=== PATIENT | female | born 1975 ===

== ENCOUNTER 2024-09-08 15:21 | Emergency (ER) | payer SELFPAY ==
[2024-09-08 15:24] VITALS: BP 153/85; PULSE 84; RESP 20; TEMP 37.2; O2SAT 100
--- OUTSIDE RECORDS SUMMARY | 2024-09-08 16:15 | XMS_ITS | Encounter Summary ---
Author Organization [facility] Address [address] [place] [address] Care Team Providers Care Spinner Fixer Name Role Phone Mishel Mendoza [facility] Primary Care Provider [phone] Encounter Details Date Type Department Care Team (Late st Contact Info) Description 11/06/2022 MyChart Message Enc [facility] [address] [place], [place] [address] [facility] Provider Air Quality Message Social History Tobacco Use Types Packs/Day Years Used Date Smoking Tobacco: Every Day Cigarettes 0.3 20 Started: 06/23/1999; Last attempted to quit: 06/23/2019 Smokeless Tobacco: Never Comments:01-17-2022 smokes abo ut 7 cigarettes a day Alcohol Use Standard Drinks/Week Comments Yes 0 (1 standard drink = 0.6 oz pur e alcohol) ocassionally AUDIT-C Answer Date Recorded Frequency of Alcohol Consumption Monthly or less 05/13/2018 Average Number of Drinks Not on file 019 Frequency of Binge Drinking Not on file 06/2018 PHQ-2 Answer Date Recorded Patient Health Questionnaire-2 Score 2 08/22/2022 Comments No Sex and Gender Information Value Date Recorded Sex Assigned at Female 05/13/2018 9:36 AM POOL HAND Legal Sex Female 10:09 PM CDT Gender Identity Female 05/13/2018 9:36 AM POOL HAND Sexual Orientation Straight 06/17/2021 9: 24 PM POOL HAND Occupation Industry Job Start Date Job End Date leave of abscence back pain Not on file Not on file Not on file documented as of this encounter Plan of Treatment Upcoming Encounters Date Type Department Care Team (Late st Contact Info) Description 02/21/2025 2:30 PM CDT Office Visit [facility] [place] [id number] Daniela Coreas, ANP-BC [address] [facility] [address] [place] [address] documented as of this encounter Visit Diagnoses Not on filedocumented in this encounter Additional Health Concerns Infection Onset Date Last Indicated Resolved Time COVID-19 Rule Out 02/11/2023 02/11/2023 02/11/2023 1:13 PM CDT Assessment Noted Time PHQ-9 Depression Total Score: 2 08/16/19 23 12:00 PM CDT documented as of this encounter Care Teams Spinner Fixer Relationship Specialty Start Date End Date Mishel Mendoza FNP [address] [place] [address] PCP - General NURSE PRACTITIONER 05/07/18 documented as of this encounter
--- OUTSIDE RECORDS SUMMARY | 2024-09-08 16:15 | XMS_ITS | Clinical Summary ---
Author Organization [facility] Address [facility] [place] [address] Care Team Providers Care Bag Loader Name Role Phone Mishel Mendoza NP Primary Care Provider [phone] Allergies Active Allergy Reactions Criticality Noted Date Comments Aspirin Hives Medium Erythromycin Hives Medium Levofloxacin Hives Medium Lisinopril Cough Low 08/02/2019 Losartan Rash Medium 08/02/2019 Small-blister rash throughout body. Penicillins Hives Medium Topiramate Vision changes Medium 09/10/2012 Venlafaxine Other (See comments) Low 10/30/2012 Medications omeprazole (PriLOSEC) 40 mg capsule TAKE 1 CAPSULE BY MOUTH EVERY DAY 0 Active diclofenac sodium (VOLTAREN) 1 % gel APPLY 4 GRAMS TO AFFECTED AREA UP TO 4 TIMES DAILY NEEDED 0 Active buPROPion SR (WELLBUTRIN SR) 150 mg 12 hr tablet Take 150 mg by mouth 2 (two) times a day 9 Active valACYclovir (VALTREX) 1 gram tablet 2 tablets po q12 hours x1 day PRN at onset of fever blister 0 Active pregabalin (LYRICA) 200 mg capsule Take 200 mg by mouth 2 (two) times a day 0 Active potassium chloride ER (KLOR-CON) 20 mEq CR tablet TAKE 1 TABLET BY MOUTH TWICE A DAY 0 Active naloxone (NARCAN) 4 mg/actuation spray,non-aero marry USE 1 SPRAY DELIVERED BY [employer] NEEDED SUSPECTED OPIATE OVERDOSE 9 Active hydrOXYzine (ATARAX) 25 mg tablet TAKE 1 TABLET BY MOUTH THREE TIMES A DAY NEEDED FOR ANXIETY 0 Active indapamide (LOZOL) 1.25 mg tablet Take 1.25 mg by mouth daily [address] (CYMBALTA) 60 mg capsule Take 60 mg by mouth daily 0 Active dicyclomine (BENTYL) 10 mg capsule Take 10 mg by mouth 3 (three) times a day 0 Active colestipoL (COLESTID) 1 gram tablet TAKE 2 TABLETS BY MOUTH 3 TIMES A DAY 0 Active azelastine (ASTELIN) 137 mcg (0.1 %) nasal spray Administer 2 sprays into affected nostril(s) 2 (two) times a day 0 Active albuterol HFA (PROVENTIL HFA,VENTOLIN HFA,PROAIR HFA) 90 mcg/actuation inhaler Inhale 2 puffs every 4 (four) hours as needed 9 Active Active Problems Problem Noted Date Diagnosed Date Osteoarthritis of knee 05/16/2016 Surgical History Surgery Date Site/Laterality Comments CHOLECYSTECTOMY HYSTERECTOMY TUBAL LIGATION 05/12/2001 - 05/11/2002 RECONSTRUCTION 05/12/2010 - 05/11/2011 RIGHT ankle reconstruction SPINAL CORD STIMULATOR IMPLANT 05/12/2011 - 05/11/2012 EYE SURGERY cataracts CATARACT EXTRACTION, BILATERAL CARPAL TUNNEL RELEASE Medical History Medical History Date Comments GERD (gastroesophageal reflux disease) Anxiety Asthma Depression IBS (irritable bowel syndrome) Arthritis Cataract removed Hiatal hernia Osteoarthritis Family History Medical History Relation Name Comments Hypertension Father Family history of hypertension - (Added by TW Conv) Lung cancer Maternal Grandfather Colon cancer Mother's Brother Liver cancer Mother's Brother Relation Name Status Comments Father Maternal Grandfather Mother's Brother Social History Tobacco Use Types Packs/Day Years Used Date Smoking Tobacco: Former Cigarettes 1 20 0 12/15/1997 - 12/15/2017 Smokeless Tobacco: Never Alcohol Use Standard Drinks/Week Comments Yes 0 (1 standard drink = 0.6 oz pur e alcohol) AUDIT-C Answer Date Recorded Frequency of Alcohol Consumption Never 06/07/2020 Average Number of Drinks Not on file 021 Frequency of Binge Drinking Not on file 05/13 Comments No Sex and Gender Information Value Date Recorded Sex Assigned at Not on file Legal Sex Female 2:58 AM ASSOCIATE DIRECTOR REGULATORY AFFAIRS Gender Identity Not on file Sexual Orientation Not on file Occupation Industry Job Start Date Job End Date disabled Not on file Not on file Not on file Obstetrics History Last Filed Vital Signs Vital Sign Reading Time Taken Comments Blood Pressure 128/89 08/28/2018 11:10 AM CDT Pulse 70 08/28/2018 11:10 AM CDT Temperature 36.6 C (97.9 F) 08/28/2018 11:10 AM CDT Respiratory Rate 16 08/28/2018 11:10 AM CDT Oxygen Saturation 97% 08/28/2018 11:10 AM CDT Inhaled Oxygen Concentration - - Weight 117.9 kg (260 lb) 06/07/2020 11:07 AM ASSOCIATE DIRECTOR REGULATORY AFFAIRS Height 160 cm (5' 3 ) 06/07/2020 11:07 AM ASSOCIATE DIRECTOR REGULATORY AFFAIRS Body Mass Index 46.06 06/07/2020 11:07 AM ASSOCIATE DIRECTOR REGULATORY AFFAIRS Plan of Treatment Not on file Medical Devices Implanted Type Area Client Service Representative Device Identifier Shelf Expiration Date Model / Serial / Lot Nevro Rodrigo [id number] Nevro 70cm Lead 5mm Spacing Kit Neurostimulator Sterile Latex Free - Sna - [id number] Implanted:Qty: 1 on 08/28/2018 by Germán Perez DO at [facility] N/A: Back Nevro Rodrigo [id number] 03/17/2021 [id number] / NA / [id number] Nevro Rodrigo [id number] Nevro 70cm Lead 5mm Spacing Kit Neurostimulator Sterile Latex Free - Sna - [id number] Implanted:Qty: 1 on 08/28/2018 by Germán Perez DO at [facility] N/A: Back Nevro Rodrigo [id number] 12/19/2020 [id number] 70B / NA / [id number] Nevro Rodrigo [id number] Senza Ipg Kit Neurostimulator Sterile Disposable Latex Free - [id number] - [id number] Implanted:Qty: 1 on 08/28/2018 by Germán Perez DO at [facility] N/A: Back Nevro Rodrigo [id number] 03/31/2020 [id number] / [id number] / [id number] Insurance [facility] HMO/PPO Address: [address] [address] [place] [address] IDPA IDPA MEDICARE Care Teams Bag Loader Relationship Specialty Start Date End Date Mishel Mendoza NP [address] [place] [address] [place] [address] PCP - General Family Practice 06/07/20
--- OUTSIDE RECORDS SUMMARY | 2024-09-08 16:15 | XMS_ITS | Patient Health Record ---
Author Organization [facility] Address [address] [facility] [address] [place] [address] Care Team Providers Care Risk Control Consultant Name Role Phone Kelly BROWN, Mishel Primary Care Provider Edmundo COTE NP, BERENICE Unavailable ALLERGIES Allergen (clinical drug ingredient) Drug/Non Drug Allergy documented on EMR Reaction Allergy Type Onset Date Status Substance with penicillin structure and antibacterial mechanism of action (substance) PENICILLINS (uncoded) Review Dt:08/20/2017 Allergy Active aspirin ASPIRIN Review Dt:08/20/2017 Drug Allergy Active erythromycin ERYTHROMYCIN BASE Review Dt:08/20/2017 Drug Allergy Active LEVAQUIN Review Dt:08/20/2017 Drug Allergy Active REASON FOR REFERRAL No Information MEDICATIONS Medication SIG (Take, Route, Frequency, Duration) Notes Start Date End Date Status Hyoscyamine Sulfate 0.125 MG 06/11/2017 Not-Taking Pregabalin 200 MG 1 capsule 1 to 3 hours before bedtime Orally Once a day Active Hyoscyamine Sulfate ER 0.375 MG 06/11/2017 Not-Taking Atorvastatin Calcium 10 MG 1 tablet Orally Once a day Active Creon 25177 UNIT as directed Orally 2 w/ meals a nd 1 w/ snacks Not-Taking buPROPion HCl 100 MG 1 tablet Orally Twice a day 150mg Active Gabapentin 400 MG 1 capsule Orally Twice a day for 30 day(s) Not-Taking metFORMIN HCl 500 MG 1 tablet with a meal Orally Once a day Active Nortriptyline HCl 75 MG 1 capsule Orally Once a day for 30 day(s) Not-Taking Phentermine HCl 15 MG 1 capsule Orally Once a day Not-Taking Percocet 7.5-325 MG 1 tablet as needed Orally every 6 hrs Not-Taking Xyzal Allergy 24HR 5 MG 1 tablet in the evening Orally Once a day Active Wellbutrin XL started when she quit smoking Not-Taking Irbesartan 150 MG 1 tablet Orally Once a day Active Colestipol HCl 1 GM 2 tablets Orally twice daily for 30 Not-Taking DULoxetine HCl 60 MG TAKE 1 CAPSULE BY MOUTH EVERY DAY for 30 Future refills will require an office visit. Has not been seen since 06/14/20 Not-Taking OMEPRAZOLE 40 MG CAPSULE,DELAYED RELEASE 40 MG 1 capsule 30 minutes before morning meal Orally Once a day for 90 days 06/11/2017 Active Dicyclomine HCl 10 MG 1-2 capsules Orally Three times a day for 30 day(s) may fill day 03/09/2021 Active Omeprazole 40 MG 1 capsule 30 minutes before morning meal Orally Once a day for 30 days Will need office visit for future refills Active PROBLEMS Problem Type ICD Code Onset Dates Problem Status W/U Status Risk SNOMED Code Notes Problem Irritable bowel syndrome with diarrhea (K58.0) Active confirmed Irritable bowel syndrome with diarrhea (921832806) PLAN OF TREATMENT No Information Insurance Providers Payer Name Payer Address Payer Phone Subscriber Number Group Number Insured Name Patient Relationship to Insured Coverage Start Date Coverage End Date [employer] Medicare [address] [address] [place], [place] [id number] Carly Bruce Self - patient is the insured Medicaid-[place] Medicaid [address] [address] [place], [place] [id number] Carly Bruce Self - patient is the insured MEDICAL (GENERAL) HISTORY Medical History History ICD Code Anxiety Depression Arthritis GERD Hypertension IBS Chronic pain Gallbladder disease Surgical History Surgery Date(Month/Year) Cholecystectomy:2009 Egd/endoscopy:EGD and colono scopy Dr. Casillas November 2010 which showed bile gastritis, reflux esophagitis, and a normal colon. Biopsies at that time showed a normal duodenum, mild chronic and active gastritis, no evidence of H. pylori, chronic active esophagit Spinal cord stimulator 2011 Ankle reconstruction 2010 Wrist surgery 2010 Hysterectomy 2003 Tubal ligation EGD 09/19/17 [place] Sma ll hiatal hernia, o/w normal Duodenal bx neg Colonocopy 09/19/17 [place] Normal colon up to TI. TI and colon bx neg.
--- OUTSIDE RECORDS SUMMARY | 2024-09-08 16:15 | XMS_ITS | Referral Summary ---
Author Organization [facility] Address [facility] [place] [address] Care Team Providers Care Traveling Representative Name Role Phone Mishel Mendoza NP Primary Care Provider [phone] Allergies Active Allergy Reactions Criticality Noted Date [...] Date Diagnosed Date Osteoarthritis of knee 05/16/2016 Social History Tobacco Use Types Packs/Day Years [...] on file Legal Sex Female 2:58 AM GLAZE SPRAYER Gender Identity Not on file Sexual Orientation Not on file Occupation Industry Job Start Date Job End Date disabled Not on file Not on file Not on file Last Filed Vital Signs Vital Sign Reading Time Taken Comments Blood Pressure 128/89 08/28/2018 11:10 AM CDT Pulse 70 08/28/2018 11:10 AM CDT Temperature 36.6 C (97.9 F) 08/28/2018 11:10 AM CDT Respiratory Rate 16 08/28/2018 11:10 AM CDT Oxygen Saturation 97% 08/28/2018 11:10 AM CDT Inhaled Oxygen Concentration - - Weight 117.9 kg (260 lb) 06/07/2020 11:07 AM GLAZE SPRAYER Height 160 cm (5' 3 ) 06/07/2020 11:07 AM GLAZE SPRAYER Body Mass Index 46.06 06/07/2020 11:07 AM GLAZE SPRAYER Plan of Treatment Not on file Medical Devices Implanted Type Area Hand Inspector Device Identifier Shelf Expiration Date Model / Serial / Lot Nevro Rodrigo [id number] Nevro 70cm Lead 5mm Spacing Kit Neurostimulator Sterile Latex Free - Sna - [id number] Implanted:Qty: 1 on 08/28/2018 by Germán Perez DO at [facility] N/A: Back Nevro Rodrigo [id number] 03/17/2021 [id number] / NA / [id number] Nevro Rodrigo [id number] Nevro 70cm Lead 5mm Spacing Kit Neurostimulator Sterile Latex Free - Sna - [id number] Implanted:Qty: 1 on 08/28/2018 by Germán Perez DO at [facility] N/A: Back Nevro Rodrigo [id number] 12/19/2020 [id number] [id number] / NA / [id number] Nevro Rodrigo [id number] Senza Ipg Kit Neurostimulator Sterile Disposable Latex Free - [id number] - [id number] Implanted:Qty: 1 on 08/28/2018 by Germán Perez DO at [facility] N/A: Back Nevro Rodrigo [id number] 03/31/2020 [id number] / [id number] / [id number] Insurance [facility] H[facility]/PPO Address: [address] [address] [place] [address] IDPA IDPA MEDICARE Care Teams Traveling Representative Relationship Specialty Start Date End Date Mishel Mendoza NP [address] [place] [address] [place] [address] PCP - General Family Practice 06/07/20
--- OUTSIDE RECORDS SUMMARY | 2024-09-08 16:16 | XMS_ITS | Clinical Summary ---
Author Organization [facility] Address [address] [place] [address] Care Team Providers Care Survey Field Technician Name Role Phone Lisamargarette Mishel [facility] Primary Care Provider [phone] Allergies Active Allergy Reactions Criticality Noted Date Comments Aspirin Hives 05/16/2011 Erythromycin Hives,Unknown 05/16/2011 Levofloxacin Hives 05/16/2011 Lisinopril Cough 08/02/2019 Losartan Rash Low 08/02/2019 Small-blister rash throughout body. Penicillins Rash Low 05/16/2011 Topiramate Blurred vision 09/10/2012 Venlafaxine Unknown 10/30/2012 Medications pregabalin 200 MG capsule Take 1 capsule (200 mg total) by mouth 2 (two) times daily. 0 Active diclofenac sodium 1 % gel APPLY 4 GRAMS TOPICALLY TO THE AFFECTED AREA UP TO FOUR TIMES DAILY NEEDED 2 Active ALPRAZolam (XANAX) 1 MG tablet 4 Active cyclobenzaprine (FLEXERIL) 10 MG tabletIndications :Neck pain Take 1 tablet (10 mg total) by mouth daily as needed. 15 tablet 4 Active atorvastatin (LIPITOR) 10 MG tabletIndications :Elevated lipoprotein(a) Take 1 tablet (10 mg total) by mouth nightly at bedtime. 90 tablet 3 4 Active albuterol sulfate HFA 108 (90 Base) MCG/ACT inhalerIndication s:Mild persistent asthma without complication (HHS/HCC) INHALE TWO PUFFS INTO THE LUNGS EVERY 4 HOURS NEEDED FOR WHEEZING 18 g 1 4 Active Naltrexone HCl, Pain, 4.5 MG Cap Take 4.5 mg by mouth nightly. 4 Active spironolactone (ALDACTONE) 25 MG tabletIndications :Primary hypertension Take 0.5 tablets (12.5 mg total) by mouth daily. 90 tablet 1 5 Active irbesartan (AVAPRO) 150 MG tabletIndications :Primary hypertension Take 1 tablet (150 mg total) by mouth daily. 90 tablet 1 5 Active azelastine (ASTELIN) 0.1 % nasal sprayIndications: Acute rhinitis 2 sprays by Nasal route 2 (two) times daily as needed. 30 mL 5 5 Active fluticasone propionate (FLONASE) 50 MCG/ACT nasal sprayIndications: Dysfunction of right eustachian tube 2 sprays by Nasal route daily. 16 g 1 5 Active buPROPion SR (WELLBUTRIN SR) 150 MG 12 hr tabletIndications :Generalized anxiety disorder TAKE ONE TABLET (150 MG TOTAL) BY MOUTH TWICE DAILY @ 9AM & 5PM 180 tablet 5 Active DULoxetine (CYMBALTA) 60 MG capsuleIndication s:Generalized anxiety disorder TAKE ONE CAPSULE (60 MG TOTAL) BY MOUTH DAILY AT 9 AM 90 capsule 5 Active metFORMIN ER (GLUCOPHAGE-XR) 500 MG 24 hr tabletIndications :Prediabetes TAKE ONE TABLET (500 MG TOTAL) BY MOUTH TWICE DAILY @ 9AM & 5PM 180 tablet 5 Active omeprazole (PRILOSEC) 40 MG capsuleIndication s:Dyspepsia TAKE ONE CAPSULE (40 MG TOTAL) BY MOUTH DAILY AT 9 AM 90 capsule 5 Active potassium chloride CR (MICRO-K) 10 MEQ CR capsuleIndication s:Diuretic-induce d hypokalemia TAKE ONE CAPSULE (10 MEQ TOTAL) BY MOUTH DAILY NEEDED 90 capsule 5 Active torsemide (DEMADEX) 10 MG tabletIndications :Peripheral edema TAKE ONE TABLET (10 MG TOTAL) BY MOUTH DAILY 90 tablet 5 Active Active Problems Problem Noted Date Diagnosed Date Diuretic-induced hypokalemia 06/30/2024 Tobacco abuse, in remission 06/28/2024 Dyspepsia 07/01/2023 ROSSANA (obstructive sleep apnea) 06/09/2023 Chronic diastolic congestive heart failure ([facility]) 06/09/2023 Prediabetes 09/10/2022 Mixed hyperlipidemia 05/14/2022 Assessment & Plan (05/14/2022 5:40 PM MACHINE CLIPPER): Patient's calculated LDL cholesterol in July 2021 was 130 mg/dL. Influenza vaccine refused 04/08/2022 Posterior right knee pain 03/21/2022 Stage 2 chronic kidney disease 09/14/2021 Herpes labialis 03/16/2020 Class 3 severe obesity due t o excess calories with serious comorbidity and body mass index (BMI) of 45.0 to 49.9 in adult 02/04/2020 Lower extremity edema 02/04/2020 Marijuana use 08/12/2019 Sedentary lifestyle 06/19/2019 Restless legs 03/30/2019 Chronic pain syndrome 03/26/2017 Overview (05/13/2018): Date Onset: 03/26/2017 Osteoarthritis of knee 05/16/2016 Insomnia 10/30/2012 Overview (05/13/2018): Date Onset: 10/30/2012 Depression 10/22/2012 Overview (05/13/2018): Date Onset: 10/22/2012 Disorder of eyelid 10/22/2012 Overview (05/13/2018): Date Onset: 10/22/2012 Pain in joint, ankle and foot 09/10/2012 Overview (05/13/2018): Date Onset: 09/10/2012 Allergic rhinitis 08/20/2012 Overview (05/13/2018): Date Onset: 08/20/2012 Reflex sympathetic dystrophy of other specified site 08/20/2012 Overview (05/13/2018): Date Onset: 08/20/2012 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 No additional changes suggested. Low back pain 08/13/2012 Overview (05/13/2018): Date Onset: 08/13/2012 Anxiety disorder 12/09/2011 Overview (05/13/2018): Date Onset: November 2011 Gastro-esophageal reflux disease without esophag itis 06/07/2011 Resolved Problems Problem Noted Date Diagnosed Date Resolved Date Elevated lipoprotein(a) 07/27/202106/12 Metabolic syndrome 07/27/2021 Weight gain 02/04/2020 01/09/2021 Tobacco abuse 06/19/2019 06/28/2024 Assessment & Plan (05/15/2022 11:17 AM MACHINE CLIPPER): The patient was advised to quit smoking and informed of the negative impact smoking has on health and how quitting can have a positive impact on morbidity and mortality. It was my assessment the patient had some interest in smoking cessation and so we discussed different methods and skills for cessation. We discussed how having a desire to be successful is the first step along with setting a stop date. The patient was given additional literature, and this will be discussed again at follow-up. The patient appears mildly motivated for success. Greater than 10 minutes of discussion, specifically with smoking cessation was provided to the patient. Poor diet 06/19/2019 06/09/2023 Left breast mass 03/03/2019 06/19/2019 Morbid obesity with BMI of 40.0-44.9, adult 05/13/2018 08/12/2019 Other malaise and fatigue 10/30/2012 Overview (05/13/2018): Date Onset: 10/30/2012 Other specified erythematous condition 10/22/2012 01/09/2021 Overview (05/13/2018): Date Onset: 10/22/2012 Pruritic disorder 10/22/2012 01/09/2021 Overview (05/13/2018): Date Onset: 10/22/2012 Other specified counseling 09/10/2012 1 Overview (05/13/2018): Date Onset: 09/10/2012 Laboratory exam ordered as p art of routine general medical examination 08/20/2012 02/09/2019 Overview (11/26/2018): Date Onset: 08/20/2012 Edema 08/13/2012 01/09/2021 Overview (05/13/2018): Date Onset: 08/13/2012 Family history of other card iovascular diseases 08/13/2012 02/09/2019 Overview (05/13/2018): Date Onset: 08/13/2012 Neuralgia, neuritis or radiculitis 08/13/2012 01/09/2021 Overview (05/13/2018): Date Onset: 08/13/2012 Class 2 severe obesity due t o excess calories with serious comorbidity and body mass index (BMI) of 37.0 to 37.9 in adult 08/13/2012 Overview (05/13/2018): Date Onset: 08/13/2012 Diarrhea 06/07/2011 02/09/2019 Esophageal reflux 06/07/2011 01/09/2021 Esophagitis 06/07/2011 01/09/2021 Encounters Date Type Department Care Team Description 09/03/2024 1:42 PM CDT - 09/03/2024 11:59 PM CDT Hospital Encounter [facility] Diagnostic Imaging [address] [place] [address] Thouvenot, Kyle, DPM Discharge Disposition: Home or Self Care (Routine Discharge) 09/03/2024 1:41 PM CDT [facility] [address] [place] [address] Kyle Toney DPM Discharge Disposition: Home or Self Care (Routine Discharge) 09/03/2024 Travel 07/29/2024 Telephone [facility] [address] [place] [address] Mishel Mendoza FNP Medication 07/16/2024 Telephone [facility]eld [address] [place] [address] Atilio Cordon MD Results; Returned Call 07/16/2024 Patient Outreach [address] [place] [address] Mark Mulligan, stacker Medication (Atorvastatin medication adherence review for 2023) 07/07/2024 9:07 AM MACHINE CLIPPER - 07/07/2024 11:59 PM MACHINE CLIPPER Hospital Encounter [facility] Laboratory [address] [place] [address] Mishel Mendoza FNP Yang, John H, MD Discharge Disposition: Home or Self Care (Routine Discharge) 07/07/2024 9:05 AM MACHINE CLIPPER - 07/07/2024 9:06 AM MACHINE CLIPPER Hospital Encounter [facility] [address] [place] [address] Mishel Mendoza FNP Discharge Disposition: Home or Self Care (Routine Discharge) 07/07/2024 9:00 AM MACHINE CLIPPER - 07/07/2024 9:04 AM MACHINE CLIPPER Hospital Encounter [facility] Mammography [address] [place] [address] Mishel Mendoza FNP Discharge Disposition: Home or Self Care (Routine Discharge) 07/06/2024 3:00 PM MACHINE CLIPPER - 07/06/2024 11:59 PM MACHINE CLIPPER Hospital Encounter [facility] [place] [address] Iona Peralta NP Discharge Disposition: Home or Self Care (Routine Discharge) 07/06/2024 Travel 06/28/2024 10:00 AM MACHINE CLIPPER Office Visit [facility] [address] [place] [address] Mishel Mendoza FNP Follow Up (6 month ) 06/28/2024 Travel 06/24/2024 Patient Outreach [facility] [address] [place] [address] Mishel Mendoza FNP Pre-visit Gap Closure 06/21/2024 11:00 AM MACHINE CLIPPER Office Visit [facility] [place] [address] Atilio Cordon MD Follow Up (Chronic CHF) 06/21/2024 Travel from Last 3 Months Immunizations Immunization Administration Dates Next Due Dtap 04/25/2017 Dtap (Acel-Immune) 04/25/2017 Tdap (Generic) 07/18/2015 Family History Medical History Relation Comments Hypertension Father Early Maternal Grandfather Early Hearing Loss Maternal Grandmother No Known Problems Mother Breast Cancer Paternal Grandmother Cancer Paternal Grandmother Relation Status Comments Father Alive Maternal Grandfather Maternal Grandmother Mother Alive Paternal Grandmother Social History Tobacco Use Types Packs/Day Years Used Date Smoking Tobacco: Former Cigarettes 0.3 20 0 06/23/1999 - 06/23/2019 Passive Smoke Exposure: Never Smokeless Tobacco: Never Tobacco Cessation:Counseling Given: No Comments:01-17-2022 smokes about 7 cigarettes a day 10/24/23 has only 3-4 cigarettes left Alcohol Use Standard Drinks/Week Comments Not Currently 0 (1 standard drink = 0.6 oz pur e alcohol) ocassionally AUDIT-C Answer Date Recorded Frequency of Alcohol Consumption Monthly or less 05/13/2018 Average Number of Drinks Not on file 019 Frequency of Binge Drinking Not on file 06/2018 PHQ-2 Answer Date Recorded Patient Health Questionnaire-2 Score 0 06/28/2024 Comments No Sex and Gender Information Value Date Recorded Sex Assigned at Female 05/13/2018 9:36 AM MACHINE CLIPPER Legal Sex Female 10:09 PM CDT Gender Identity Female 05/13/2018 9:36 AM MACHINE CLIPPER Sexual Orientation Straight 06/17/2021 9: 24 PM MACHINE CLIPPER Occupation Industry Job Start Date Job End Date leave of abscence back pain Not on file Not on file Not on file Last Filed Vital Signs Vital Sign Reading Time Taken Comments Blood Pressure 108/67 06/28/2024 9:58 AM MACHINE CLIPPER Pulse 68 06/28/2024 9:58 AM MACHINE CLIPPER Temperature 36.3 C (97.3 F) 06/28/2024 9:58 AM MACHINE CLIPPER Respiratory Rate 12 06/28/2024 9:58 AM MACHINE CLIPPER Oxygen Saturation 98% 06/28/2024 9:58 AM MACHINE CLIPPER Inhaled Oxygen Concentration - - Weight 124.7 kg (275 lb) 06/28/2024 9:58 AM MACHINE CLIPPER Height 161.3 cm (5' 3.5 ) 06/28/2024 9:58 AM MACHINE CLIPPER Body Mass Index 47.95 06/28/2024 9:58 AM MACHINE CLIPPER Plan of Treatment Upcoming Encounters Date Type Department Care Team (Late st Contact Info) Description 02/21/2025 2:30 PM CDT Office Visit [facility] [place] [phone] Daniela Coreas, ANP-BC [address] [phone] Health Maintenance Due Date Last Done Comments Annual Physical 09/11/1978 Hepatitis B Vaccines (1 of 3 - 19+ 3-dose series) 09/11/1994 Pneumococcal Vaccine: Pediatrics (0 to 5 Years) and At-Risk Patients (6 to 49 Years) (1 of 2 - PCV) 09/11/1994 COVID-19 Vaccine ( - season) 2024 04/26/2021, 03/28/2021 Mammogram Screening 07/07/2026 07/07/2024, 09/23/2022, 07/19/2020, Additional history exists DTaP, Tdap and Td Vaccines (4 - Td or Tdap) 04/25/2027 04/25/2017, 04/25/2017, 07/18/2015 Colorectal Cancer Screening Colonoscopy (10 Years) 09/20/2027 09/19/2017 Hepatitis C Completed 09/09/2022 PHQ-2 (Physician [place]) Completed 06/28/2024 Meningococcal B Vaccine Aged Out No l onger eligible based on patient's age to complete this topic Meningococcal Vaccine Aged Out No aracelis ishan eligible based on patient's age to complete this topic RSV Immunizations Under 20 Months Aged Out No longer eligible based on patient's age to complete this topic Medical Devices Implanted Type Area Medical Assistant Ob Gyn Device Identifier Shelf Expiration Date Model / Serial / Lot Stimulator Lead-08/28/2018 Implanted:Qty: 1 on 08/28/2018 by Germán Ferrara, DO Lead Implant Spine Thoracic [id number] 1058-70B / [id number] / Description:PERCUTANEOUS SKYLER D Stimulator Lead-08/28/2018 Implanted:Qty: 1 on 08/28/2018 by Germán Ferrara, Lead Implant Spine Thoracic [id number] 1058-70B / [id number] / Description:PERCUTANEOUS SKYLER D Spinal Cord Stimulator-2018 Implanted:Qty: 1 on 08/28/2018 by Germán Ferrara, DO Abdomen [id number] 1500 / [id number] / Description:MR MITCHELL Cook CRISTINA THE MOST RECENT MRI TECHNICAL MANUAL FOR CONDITIONS. PATIENT HAS PERCUTANEOUS LEADS (LOW PRIYANKA TORSO SCANS AT 1.5 T ONLY) HEAD AND EXTREMITY SCANS 1.5 T OR (3T ONLY IF USING A TRANSMIT/RECEIVE HEAD, KNEE, OR FOOT COIL), STIMULATION MUST BE TURNED OFF, PATIENT CANNOT HAVE A FEVER Procedures Procedure Name Priority Date/Time Associated Diagnosis Comments MRI ANKLE RT WO CON Routine 09/03/2024 2 :47 PM CDT Stress fracture, right ankle, subsequent encounter for fracture with delayed healing XR ABD AP+LAT STAT 09/03/2024 1:53 PM CDT Encounter for imaging to screen for metal prior to MRI CT CHEST WO CON Routine 07/07/2024 9:46 AM MACHINE CLIPPER Lung nodule MG SCREENING W FAB ANDRIY DIGI Routine 07/07/2024 9:30 AM MACHINE CLIPPER Encounter for screening mammogram for malignant neoplasm of breast PRO-BRAIN NATRIURETIC PEPTIDE Routine 07/07/2024 9:08 AM MACHINE CLIPPER Chronic diastolic congestive heart failure (CMS/HCC HHS/HCC) ALBUMIN URINE RANDOM W/CREATININE Routine 07/07/2024 9:08 AM MACHINE CLIPPER Stage 2 chronic kidney disease HEMOGLOBIN, GLYCOSYLATED Routine 07/07/2024 9:08 AM MACHINE CLIPPER Prediabetes LIPID PANEL Routine 07/07/2024 9:08 AM MACHINE CLIPPER Elevated lipoprotein(a) BASIC METABOLIC PANEL Routine 07/07/2024 9:08 AM MACHINE CLIPPER Primary hypertension MRI LUMB SPINE WO CON Routine 07/06/2024 3:51 PM MACHINE CLIPPER Lumbago Vertebrogenic low back pain HEPATITIS C ANTIBODY Routine 09/09/2022 2:30 PM CDT Need for hepatitis C screening test COLONOSCOPY/EGD GENERIC (SCAN ORDER) Routine 09/19/2017 12:00 AM CDT from Last 3 Months or Most Recently Relevant to Health Maintenance Results * MRI ANKLE RT WO CON (09/03/2024 2:47 PM CDT) Anatomical Region Laterality Modality Ankle Magnetic Resonan ce 09/07/2024 4:18 PM CDT Impressions 09/07/2024 4:24 PM CDT IMPRESSION: 1. THERE IS EVIDENCE OF POSTOPERATIVE CHANGE ANTEROLATERALLY WITH MULTIPLE SMALL POSTOPERATIVE SUSCEPTIBILITY ARTIFACTS. I AM NOT ABLE TO VISUALIZE A NORMAL INTO TALOFIBULAR LIGAMENT IN ITS EXPECTED LOCATION SUGGESTING THAT IT HAS BEEN CHRONICALLY TORN. I AM ALSO UNABLE TO VISUALIZE A NORMAL CALCANEOFIBULAR LIGAMENT IN ITS EXPECTED LOCATION. 2. CHRONIC CHANGES OF DEGENERATIVE OSTEOARTHRITIS INVOLVING THE CALCANEOCUBOID ARTICULATION. 3. CHRONIC CHANGES OF DEGENERATIVE OSTEOARTHRITIS INVOLVING THE NAVICULAR MEDIAL CUNEIFORM ARTICULATION. 4. DIFFUSE SUBCUTANEOUS EDEMA ABOUT THE ANKLE. NONSPECIFIC EDEMA IN THE PRE-ACHILLES FAT PAD SUGGESTING ACHILLES PERITENDINITIS. Signed: Luis Enrique Hernández MD Referred By: KYLE TONEY Interpreted By: Luis Enrique Hernández MD, 09/07/2024 4:18 PM Narrative 09/07/2024 4:24 PM CDT [id number] [place] [address] PATIENT NAME: CHRIS Calderon BONE EXAM: MRI right ankle without contrast DATE OF EXAM: 09/03/2024 COMPARISON EXAM: None INDICATION: Chronic ankle pain, remote history of ligament repair. TECHNIQUE: T1-weighted images were obtained axial, sagittal and coronal to the tibiotalar joint. Sagittal STIR images were obtained along with axial, oblique axial and coronal fat-suppressed proton density images. No intravenous contrast. FINDINGS: There is mild diffuse subcutaneous edema about the ankle. The images Demonstrate normal marrow signal in the distal tibia and distal fibula. There is a normal appearance of the tibiotalar joint. There is no evidence of talar dome osteochondral lesion. Normal marrow signal in the talus. Subtalar joints are unremarkable. No focal abnormality noted involving the sinus Tarsi. Normal marrow signal in the calcaneus. There are chronic changes of degenerative osteoarthritis involving the calcaneal cuboid articulation with evidence of subchondral edema on both sides joint as well as osteophyte formation. There are also findings of chronic degenerative osteoarthritis involving the articulation of the navicular and medial cuneiform. The Achilles tendon appears intact. There is some mild nonspecific edema in the pre-Achilles fat pad. Plantar fascia is unremarkable. Tibials posterior, flexor digitorum and flexor hallucis tendons are unremarkable. There is abnormal synovial thickening and fluid accumulation involving the peroneal tendon sheath with some minimal focal signal abnormality within the substance of the peroneus brevis. Findings suggest chronic peroneal tendinitis/tenosynovitis. There are postoperative changes with multiple small metal susceptibility artifacts noted anterolaterally. I am not able to visualize a normal anterior talofibular ligament in its expected location suggesting that it has been chronically torn. I am also unable to visualize a normal calcaneofibular ligament. Posterior talofibular and tibiofibular ligaments appear intact. There is no abnormal fluid accumulation in the distal tibiofibular syndesmosis region. Deltoid and spring ligaments appear intact. Procedure Note Luis Enrique Hernández MD - 09/07/2024 [address] [place] [address] PATIENT NAME: CHRIS Calderon BONE EXAM: MRI right ankle without contrast DATE OF EXAM: 09/03/2024 COMPARISON EXAM: None INDICATION: Chronic ankle pain, remote history of ligament repair. TECHNIQUE: T1-weighted images were obtained axial, sagittal and coronal tothe tibiotalar joint. Sagittal STIR images were obtained along withaxial, oblique axial and coronal fat-suppressed proton density images. Nointravenous contrast. FINDINGS: There is mild diffuse subcutaneous edema about the ankle. Theimages Demonstrate normal marrow signal in the distal tibia and distalfibula. There is a normal appearance of the tibiotalar joint. There isno evidence of talar dome osteochondral lesion. Normal marrow signal inthe talus. Subtalar joints are unremarkable. No focal abnormality notedinvolving the sinus Tarsi. Normal marrow signal in the calcaneus. There are chronic changes of degenerative osteoarthritis involving thecalcaneal cuboid articulation with evidence of subchondral edema on bothsides joint as well as osteophyte formation. There are also findings ofchronic degenerative osteoarthritis involving the articulation of thenavicular and medial cuneiform. The Achilles tendon appears intact. There is some mild nonspecific edemain the pre-Achilles fat pad. Plantar fascia is unremarkable. Tibials posterior, flexor digitorum and flexor hallucis tendons areunremarkable. There is abnormal synovial thickening and fluidaccumulation involving the peroneal tendon sheath with some minimal focalsignal abnormality within the substance of the peroneus brevis. Findingssuggest chronic peroneal tendinitis/tenosynovitis. There are postoperative changes with multiple small metal susceptibilityartifacts noted anterolaterally. I am not able to visualize a normalanterior talofibular ligament in its expected location suggesting that ithas been chronically torn. I am also unable to visualize a normalcalcaneofibular ligament. Posterior talofibular and tibiofibularligaments appear intact. There is no abnormal fluid accumulation in thedistal tibiofibular syndesmosis region. Deltoid and spring ligaments appear intact. IMPRESSION: 1. THERE IS EVIDENCE OF POSTOPERATIVE CHANGE ANTEROLATERALLY WITHMULTIPLE SMALL POSTOPERATIVE SUSCEPTIBILITY ARTIFACTS. I AM NOT ABLE TOVISUALIZE A NORMAL INTO TALOFIBULAR LIGAMENT IN ITS EXPECTED LOCATIONSUGGESTING THAT IT HAS BEEN CHRONICALLY TORN. I AM ALSO UNABLE TOVISUALIZE A NORMAL CALCANEOFIBULAR LIGAMENT IN ITS EXPECTED LOCATION. 2. CHRONIC CHANGES OF DEGENERATIVE OSTEOARTHRITIS INVOLVING THECALCANEOCUBOID ARTICULATION. 3. CHRONIC CHANGES OF DEGENERATIVE OSTEOARTHRITIS INVOLVING THE NAVICULARMEDIAL CUNEIFORM ARTICULATION. 4. DIFFUSE SUBCUTANEOUS EDEMA ABOUT THE ANKLE. NONSPECIFIC EDEMA IN THEPRE- ACHILLES FAT PAD SUGGESTING ACHILLES PERITENDINITIS. Signed: Luis Enrique Hernández MD Referred By: KYLE TONEY Interpreted By: Luis Enrique Hernández MD, 09/07/2024 4:18 PM Kyle Toney DP MRI Final Result * XR ABD AP+LAT (09/03/2024 1:53 PM CDT) Anatomical Region Laterality Modality Abdomen Radiographic Jessica ging 09/03/2024 2:01 PM CDT Impressions 09/03/2024 2:02 PM CDT IMPRESSION: 1) Unremarkable spinal stimulator leads as described. Ordered By: KYLE TONEY Interpreted By: Luis Enrique Hernández MD, 09/03/2024 2:01 PM Narrative 09/03/2024 2:02 PM [address] [address] Examination: XR ABD AP+LAT Exam time: 09/03/2024 1:43 PM Clinical history: Stimulator device assessment prior to MRI Comparison: None Technique: Supine AP view abdomen Findings: There is a spine stimulator place with the generator projecting over the right ilium. The leads are seen extending over the lower thoracic spinal canal in the midline. There is no evidence of lead fracture. No evidence to suggest an abandoned lead. No other radiopaque implanted devices are noted. Procedure Note Luis Enrique Hernández MD - 09/03/2024 [id number] [facility] [place] [address] Examination: XR ABD AP+LAT Exam time: 09/03/2024 1:43 PM Clinical history: Stimulator device assessment prior to MRI Comparison: None Technique: Supine AP view abdomen Findings: There is a spine stimulator place with the generator projectingover the right ilium. The leads are seen extending over the lower thoracicspinal canal in the midline. There is no evidence of lead fracture. Noevidence to suggest an abandoned lead. No other radiopaque implanteddevices are noted. IMPRESSION: 1) Unremarkable spinal stimulator leads as described. Ordered By: KYLE TONEY Interpreted By: Luis Enrique Hernández MD, 09/03/2024 2:01 PM Kyle Toney DPM GENERAL IMAGING Final Result * CT CHEST WO CON (07/07/2024 9:46 AM MACHINE CLIPPER) Anatomical Region Laterality Modality Chest Computed Tomogra phy 07/11/2024 2:06 AM MACHINE CLIPPER Impressions 07/11/2024 2:08 AM MACHINE CLIPPER IMPRESSION: 1. No pathologic pulmonary nodules or pathologic lymphadenopathy. 2. Stable calcified granulomas and calcified right hilar lymph nodes.. 3. No infiltrate or effusion. Referred By: MISHEL MENDOZA Interpreted By: Jose Dela Cruz MD, 07/11/2024 2:06 AM Narrative 07/11/2024 2:08 AM MACHINE CLIPPER [address] [place] [id number] EXAMINATION: CT CHEST WITHOUT CONTRAST EXAM DATE/TIME: 07/07/2024 9:37 AM REASON FOR EXAM: lung nodule COMPARISON: 11/29/2011 TECHNIQUE: Computed tomography was performed of the chest without intravenous contrast. A dose lowering technique was used for this procedure, which may include, but is not limited to, dose reduction technique, automated exposure control, iterative reconstruction, ALARA (As Low As Reasonably Achievable), or Image Gently techniques. FINDINGS: On lung windows, no suspicious pulmonary lesion, pneumothorax, or pleural effusion.. Stable calcified granulomas in right middle lobe. On soft tissue windows, no axillary or supraclavicular lymphadenopathy. On mediastinal windows, no evidence of hilar or mediastinal lymphadenopathy. Heart size normal. No pericardial effusion. Stable calcified right hilar lymph nodes. Limited evaluation of the upper abdomen demonstrates no acute abnormality. On bone windows, no suspicious skeletal lesion or acute compression fracture deformity.. Thoracic intrathecal electrodes noted. Procedure Note Jose Dela Cruz MD - 07/11/[address] [place] [address] EXAMINATION: CT CHEST WITHOUT CONTRAST EXAM DATE/TIME: 07/07/2024 9:37 AM REASON FOR EXAM: lung nodule COMPARISON: 11/29/2011 TECHNIQUE: Computed tomography was performed of the chest withoutintravenous contrast. A dose lowering technique was used for this procedure, which may include,but is not limited to, dose reduction technique, automated exposurecontrol, iterative reconstruction, ALARA (As Low As ReasonablyAchievable), or Image Gently techniques. FINDINGS: On lung windows, no suspicious pulmonary lesion, pneumothorax, or pleuraleffusion.. Stable calcified granulomas in right middle lobe. On soft tissue windows, no axillary or supraclavicular lymphadenopathy. On mediastinal windows, no evidence of hilar or mediastinallymphadenopathy. Heart size normal. No pericardial effusion. Stablecalcified right hilar lymph nodes. Limited evaluation of the upper abdomen demonstrates no acuteabnormality. On bone windows, no suspicious skeletal lesion or acute compressionfracture deformity.. Thoracic intrathecal electrodes noted. IMPRESSION: 1. No pathologic pulmonary nodules or pathologic lymphadenopathy. 2. Stable calcified granulomas and calcified right hilar lymph nodes.. 3. No infiltrate or effusion. Referred By: MISHEL MENDOZA Interpreted By: Jose Dela Cruz MD, 07/11/2024 2:06 AM us Mishel Mendoza HOURLY ASSOCIATE CT Final Res ult * MG SCREENING W FAB ANDRIY DIGI (07/07/2024 9:30 AM MACHINE CLIPPER) Anatomical Region Laterality Modality Breast Bilateral Mammography 07/08/2024 6:43 AM MACHINE CLIPPER Impressions 07/08/2024 6:44 AM MACHINE CLIPPER ===== IMPRESSION: ===== 1. Stable mammographic appearance with no new findings to suggest malignancy in either breast. Assessment: ACR BI-RADS 2 - BENIGN FINDING(S) Recommendation: 1:Routine Screening Bilateral Comments: Ordered By: MISHEL MENDOZA Interpreted By: Rony White MD, 07/08/2024 6:43 AM Narrative 07/08/2024 6:44 AM MACHINE CLIPPER [address] [place] [address] Examination: Digital bilateral screening mammogram with 3D Tomosynthesis Exam Date/Time: 07/07/2024 9:15 AM Reason For Exam: screening Benign left cyst aspiration 2019. No personal or first-degree relative history of breast cancer. No current complaints. Comparison: Mammograms from 09/23/2022 07/19/2020 02/12/2019 Technique: Digital screening mammography of both breasts was performed in addition to 3-D Tomosynthesis technique. This study was read with the assistance of a computer-aided detection system. Tissue density: There are scattered areas of fibroglandular density. Findings: Benign axillary lymph nodes. Stable small intramammary left sided lymph node. No suspicious interval change in parenchymal pattern from the prior studies. There is no new focal asymmetry, dominant mass lesion, area of skin thickening, or cluster of suspicious appearing calcifications in either breast to suggest malignancy. Mishel Mendoza HOURLY ASSOCIATE MAMMO Final Res ult * PRO BNP ([facility]) (07/07/2024 9:08 AM MACHINE CLIPPER) PRO-BRAIN NATRIURETIC PEPTIDE 77 0 - 125 PG/ML 07/07/2024 9:45 AM MACHINE CLIPPER [facility] Comment: CUT POINTS ESTABLISHED BY INTERNATIONAL COLLAB[employer]ATIVE ON NT PROBNP (ICON) STUDY (2006). AGE INDEPENDENT: <300 PG/ML HAS A 99% NEGATIVE PREDICTIVE VALUE FOR EXCLUDING ACUTE CHF <50 YEARS: >450 PG/ML IS CONSISTENT WITH ACUTE CHF 50-75 YEARS: >900 PG/ML IS CONSISTENT WITH ACUTE CHF >75 YEARS: >1800 PG/ML IS CONSISTENT WITH ACUTE CHF IN PATIENTS WITH RENAL INSUFFICIENCY (GFR <60), >1200 PG/ML YIELDS A DIAGNOSTIC SENSITIVITY AND SPECIFICITY OF 89% AND 72% FOR ACUTE CHF. 07/07/2024 9:08 AM MACHINE CLIPPER Atilio Cordon MD LABORATORY Final Result [facility] [address] [place] [address], * (ABNORMAL) HEMOGLOBIN, GLYCOSYLATED (07/07/2024 9:08 AM MACHINE CLIPPER) HGB A1C 6.1(H) <5.7 % 07/07/2024 5:44 PM MACHINE CLIPPER [facility] Comment: ADA GUIDELINES 2010 5.7 TO 6.4% INCREASED RISK OF DIABETES > OR = 6.5% CONSISTENT WITH DIABETES ESTIMATED AVG GLUCOSE 128 mg/dL 07/07/2024 5:44 PM MACHINE CLIPPER [facility] 07/07/2024 9:08 AM MACHINE CLIPPER Mishel RIVERA LABORATORY Final Res ult [facility] [address] [place] [address], [place] [phone] * (ABNORMAL) ALBUMIN URINE RANDOM W/CREATININE (07/07/2024 9:08 AM MACHINE CLIPPER) CREATININE RANDOM (U) 223.0(H) 28 - 217 MG/DL 07/07/2024 3:40 PM [facility] MICROALBUMIN (U) 1.1 <2.0 mg/dL 07/07/2024 3:40 PM [facility] ALBUMIN/CREAT RATIO 5.0 <30 MG/G 07/07/2024 3:40 PM [facility] URINE SPECIMEN / Unknown 07/07/2024 9:08 AM MACHINE CLIPPER Mishel Mendoza HOURLY ASSOCIATE URINE ORDERABLES Final Re sult [facility] [address] [place] [address], * (ABNORMAL) BASIC METABOLIC PANEL (07/07/2024 9:08 AM MACHINE CLIPPER) GLUCOSE 98 70 - 99 MG/DL 07/07/2024 9:32 AM [facility] BUN 15 7 - 18 MG/DL 07/07/2024 9:32 AM [facility] CREATININE S/P/B 1.03 0.50 - 1.20 MG/DL 07/07/2024 9:32 AM [facility] SODIUM S/P/B 140 136 - 145 MMOL/L 07/07/2024 9:32 AM [facility] POTASSIUM S/P/B 3.7 3.5 - 5.1 MMOL/L 07/07/2024 9:32 AM [facility] CHLORIDE S/P/B 105 100 - 108 MMOL/L 07/07/2024 9:32 AM [facility] CO2 26.7 21.0 - 32.0 MMOL/L 07/07/2024 9:32 AM [facility] CALCIUM S/P/B 8.4(L) 8.5 - 10.1 MG/DL 07/07/2024 9:32 AM [facility] ANION GAP 8.3 5.0 - 15.0 MMOL/L 07/07/2024 9:32 AM [facility] BUN CREATININE RATIO 14.6 6 - 07/07/2024 9:32 AM [facility] GFR ESTIMATE 67(L) >90 ML/MIN/1.7 3 M2 07/07/2024 9:32 AM [facility] Comment: NOTE: eGFR is not calculated for patients <18 years of age. This is an estimated GFR calculation using the new CKD EPI creatinine equation without race and so does not require a correction factor for race. This estimated GFR should not be used for calculating drug doses. 07/07/2024 9:08 AM MACHINE CLIPPER us Mishel Mendoza [facility] LABORATORY Final Res ult [facility] [address] [place] [address] [place] [address], * (ABNORMAL) LIPID PANEL (07/07/2024 9:08 AM MACHINE CLIPPER) CHOLESTEROL 164 <200 MG/DL 07/07/2024 3:22 PM [facility] TRIGLYCERIDES 150(H) <150 MG/DL 07/07/2024 3:22 PM [facility] HDL 48 >40.0 MG/DL 07/07/2024 3:22 PM [facility] LDL (CALCULATED) 86 <100 MG/DL 07/07/2024 3:22 PM [facility] NON HDL CHOLESTEROL 116 <130 MG/DL 07/07/2024 3:22 PM [facility] CHOL/HDL RATIO 3.4 0.0 - 4.5 07/07/2024 3:22 PM [facility] VLDL CALCULATION 30 5 - 55 MG/DL 07/07/2024 3:22 PM [facility] LIPID INTERPRETATION 07/07/2024 3:22 PM MACHINE CLIPPER [facility] Comment: NIH CONCENSUS REPORT RECOMMENDATIONS: ADULT CHILD LOW RISK: CHOLESTEROL <200 <170 TRIGLYCERIDE <150 --- HDL >=60 --- LDL <100 <110 BORDERLINE: CHOLESTEROL 200-239 170-199 TRIGLYCERIDE 150-199 --- HDL 40-59 --- LDL 100-159 110-129 HIGH RISK: CHOLESTEROL >=240 >=200 TRIGLYCERIDE >=200 --- HDL <40 --- LDL >=160 >=130 07/07/2024 9:08 AM MACHINE CLIPPER Mishel Mendoza [facility] LABORATORY Final Res ult [facility] [address] [place] [address], * MRI LUMB SPINE WO CON (07/06/2024 3:51 PM MACHINE CLIPPER) Anatomical Region Laterality Modality Spine Magnetic Resonan ce 07/07/2024 2:12 AM MACHINE CLIPPER Impressions 07/07/2024 2:15 AM MACHINE CLIPPER IMPRESSION: 1. Mild multilevel degenerative changes in the lumbar spine, as detailed above. 2. Partially visualized spinal stimulator. Referred By: IONA PERALTA Interpreted By: Joey Redding MD, 07/07/2024 2:12 AM Narrative 07/07/2024 2:15 AM MACHINE CLIPPER [facility] [address] [place], [place] [address] INDICATION: Back pain. Spinal stimulator. EXAMINATION: MRI lumbar spine without contrast. TECHNIQUE: Multiplanar and multisequence MRI images of the lumbar spine were obtained without contrast. COMPARISON: 05/23/2023 FINDINGS: There are 5 lumbar type vertebral bodies designated as L1 through L5; using this numbering system, the conus medullaris terminates at L1 and appears unremarkable. Partially visualized spinal stimulator. The lumbar vertebral alignment, vertebral body heights, and facet alignment are maintained. Degenerative changes are evident in the lumbar spine with disc degeneration, endplate osteophytes, ligamentum flavum thickening, and facet hypertrophy noted. Imaged portions of the soft tissues reveal no definite acute findings. T12-L1: Ligamentous and facet hypertrophy. No significant canal or foraminal narrowing. L1-L2: Ligamentous and facet hypertrophy. No significant canal or foraminal narrowing. 3: Ligamentous and facet hypertrophy. No significant canal or foraminal narrowing. L3-L4: Tiny disc bulge. Ligamentous and facet hypertrophy. No significant canal or foraminal narrowing. L4-L5: Tiny disc bulge. Marginal endplate osteophytes. Ligamentous and facet hypertrophy. No significant canal stenosis, though epidural lipomatosis contribute to diminution of the thecal sac caliber. Mild foraminal narrowing. L5-S1: Facet hypertrophy. Epidural lipomatosis contributes to diminution of the thecal sac caliber. No significant foraminal narrowing. Procedure Note Joey Redding MD - 07/07/[address] [address] INDICATION: Back pain. Spinal stimulator. EXAMINATION: MRI lumbar spine without contrast. TECHNIQUE: Multiplanar and multisequence MRI images of the lumbar spine were obtainedwithout contrast. COMPARISON: 05/23/2023 FINDINGS: There are 5 lumbar type vertebral bodies designated as L1 through L5;using this numbering system, the conus medullaris terminates at L1 andappears unremarkable. Partially visualized spinal stimulator. The lumbar vertebral alignment,vertebral body heights, and facet alignment are maintained. Degenerativechanges are evident in the lumbar spine with disc degeneration, endplateosteophytes, ligamentum flavum thickening, and facet hypertrophy noted. Imaged portions of the soft tissues reveal no definite acute findings. T12-L1: Ligamentous and facet hypertrophy. No significant canal orforaminal narrowing. L1-L2: Ligamentous and facet hypertrophy. No significant canal orforaminal narrowing. 3: Ligamentous and facet hypertrophy. No significant canal or foraminalnarrowing. L3-L4: Tiny disc bulge. Ligamentous and facet hypertrophy. No significantcanal or foraminal narrowing. L4-L5: Tiny disc bulge. Marginal endplate osteophytes. Ligamentous andfacet hypertrophy. No significant canal stenosis, though epidurallipomatosis contribute to diminution of the thecal sac caliber. Mildforaminal narrowing. L5-S1: Facet hypertrophy. Epidural lipomatosis contributes to diminutionof the thecal sac caliber. No significant foraminal narrowing. IMPRESSION: 1. Mild multilevel degenerative changes in the lumbar spine, as detailedabove. 2. Partially visualized spinal stimulator. Referred By: IONA PERALTA Interpreted By: Joey Redding MD, 07/07/2024 2:12 AM us Iona Peralta SENIOR QUALITY ENGINEER MRI Final Result * HEPATITIS C ANTIBODY (09/09/2022 2:30 PM CDT) HEPATITIS C AB NON-REACTI VE NON-REACTI VE 09/09/2022 8:07 PM CDT [facility] 09/09/2022 2:30 PM CDT us Mishel Mendoza HOURLY ASSOCIATE LABORATORY Final Res ult [facility] [address] [place] [address], [place] [phone] * COLONOSCOPY/EGD (09/19/2017 12:00 AM CDT) 09/19/2017 us Documents Scanned SCANNING Final Result [facility] [place] from Last 3 Months or Most Recently Relevant to Health Maintenance Insurance MEDICAID [facility] MEDICAID Advance Directives Documents on File Type Date Recorded Patient Customer Account Technician Expl anation Advance Directives and Living Will 11/22/2013 12:00 AM ADVANCED DIRECTIVES Advance Directives and Living Will 03/09/2013 12:00 AM ADVANCED DIRECTIVES Care Teams Survey Field Technician Relationship Specialty Start Date End Date Mishel Mendoza FNP [address] [place] [address] [place] [address] PCP - General NURSE PRACTITIONER 05/07/18
--- OUTSIDE RECORDS SUMMARY | 2024-09-08 16:16 | XMS_ITS | Encounter Summary ---
Author Organization [facility] Address [address] [place] [address] Care Team Providers Care Assignment Clerk Name Role Phone Mishel Mendoza [facility] Primary Care Provider [phone] Encounter Details Date Type Department Care Team (Late st Contact Info) Description 07/27/2021 MyChart Message Enc [facility] [address] [place] [address] Mishel Mendoza [facility] [address] [place] [id number] Diabetic medication Social History Tobacco Use Types Packs/Day Years Used Date Smoking Tobacco: Every Day Cigarettes 0.5 20 Started: 06/23/1999; Last attempted to quit: 06/23/2019 Smokeless Tobacco: Never Comments:Provider to drug and alcohol counselor Alcohol Use Standard Drinks/Week Comments Yes 0 (1 standard drink = 0.6 oz pur e alcohol) ocassionally AUDIT-C Answer Date Recorded Frequency of Alcohol Consumption Monthly or less 05/13/2018 Average Number of Drinks Not on file 019 Frequency of Binge Drinking Not on file 06/2018 PHQ-2 Answer Date Recorded PHQ-2 Score - If the patient scores above 3, please move on to questions 3-9 0 02/09/2021 Comments No Sex and Gender Information Value Date Recorded Sex Assigned at Female 05/13/2018 9:36 AM JUNIOR DATABASE ADMINISTRATOR Legal Sex Female 10:09 PM CDT Gender Identity Female 05/13/2018 9:36 AM JUNIOR DATABASE ADMINISTRATOR Sexual Orientation Straight 06/17/2021 9: 24 PM JUNIOR DATABASE ADMINISTRATOR Occupation Industry Job Start Date Job End Date leave of abscence back pain Not on file Not on file Not on file COVID-19 Exposure Response Date Recorded In the last 10 days, have geovanny u been in contact with someone who was confirmed or suspected to have Coronavirus/COVID-19? No / Unsure 07/27/2021 7:59 AM CDT documented as of this encounter Progress Notes * Shahnaz Rodriguez LPN - 07/27/2021 1:41 PM CDT Forward to Mishel Mendoza RN 4TH GRADE MATH TEACHER-C. documented in this encounter Plan of Treatment Upcoming Encounters Date Type Department Care Team (Late st Contact Info) Description 02/21/2025 2:30 PM CDT Office Visit [facility] [place] [address] Daniela Coreas, ANP- [address] [address] documented as of this encounter Visit Diagnoses Not on filedocumented in this encounter Additional Health Concerns Infection Onset Date Last Indicated Resolved Time COVID-19 Rule Out 08/31/2021 08/31/2021 08/31/2021 12:25 PM CDT COVID-19 Rule Out 09/02/2021 09/02/2021 09/02/2021 5:02 PM CDT COVID-19 Rule Out 04/18/2022 04/18/2022 04/18/2022 3:39 PM JUNIOR DATABASE ADMINISTRATOR COVID-19 Rule Out 04/19/2022 04/19/2022 04/19/2022 7:15 PM JUNIOR DATABASE ADMINISTRATOR COVID-19 Rule Out 02/11/2023 02/11/2023 02/11/2023 1:13 PM CDT Assessment Noted Time PHQ-9 Depression Total Score: 0 02/10/20 11:08 AM CDT documented as of this encounter Care Teams Assignment Clerk Relationship Specialty Start Date End Date Mishel Mendoza FNP [address] [place] [address] [place] [address] PCP - General NURSE PRACTITIONER 05/07/18 documented as of this encounter
--- OUTSIDE RECORDS SUMMARY | 2024-09-08 17:58 | XMS_ITS | Encounter Summary ---
Author Organization [facility] Address [address] [place] [address] Care Team Providers Care Earth Science Technician Name Role Phone Mishel Mendoza [facility] Primary Care Provider [phone] Encounter Details Date Type Department Care Team (Late st Contact Info) Description 07/27/2021 MyChart Message Enc [facility] [address] [place] [address] [facility] [address] [place] [id number] Diabetic medication Social History Tobacco Use Types Packs/Day Years Used Date Smoking Tobacco: Every Day Cigarettes 0.5 20 Started: 06/23/1999; Last attempted to quit: 06/23/2019 Smokeless Tobacco: Never Comments:Provider to investment counselor Alcohol Use Standard Drinks/Week Comments Yes [...] Sex Assigned at Female 05/13/2018 9:36 AM LEAD HANDLER Legal Sex Female 10:09 PM CDT Gender Identity Female 05/13/2018 9:36 AM LEAD HANDLER Sexual Orientation Straight 06/17/2021 9: 24 PM LEAD HANDLER Occupation Industry Job Start Date Job End [...] PM CDT Forward to Mishel Mendoza RN ANTITANK ASSAULT GUNNER-C. documented in this encounter Plan of Treatment Upcoming Encounters Date Type Department Care Team (Late st Contact Info) Description 02/21/2025 2:30 PM CDT Office Visit [facility] [place] [address] Daniela Coreas, ANP- [address] [address] documented as of this encounter Visit Diagnoses Not on filedocumented in this encounter Additional Health Concerns Infection Onset Date Last Indicated Resolved Time COVID-19 Rule Out 08/31/2021 08/31/2021 08/31/2021 12:25 PM CDT COVID-19 Rule Out 09/02/2021 09/02/2021 09/02/2021 5:02 PM CDT COVID-19 Rule Out 04/18/2022 04/18/2022 04/18/2022 3:39 PM LEAD HANDLER COVID-19 Rule Out 04/19/2022 04/19/2022 04/19/2022 7:15 PM LEAD HANDLER COVID-19 Rule Out 02/11/2023 02/11/2023 02/11/2023 1:13 PM CDT Assessment Noted Time PHQ-9 Depression Total Score: 0 02/10/20 11:08 AM CDT documented as of this encounter Care Teams Earth Science Technician Relationship Specialty Start Date End Date Mishel Mendoza FNP [address] [place] [address] [place] [address] PCP - General NURSE PRACTITIONER 05/07/18 documented as of this encounter
--- OUTSIDE RECORDS SUMMARY | 2024-09-08 17:58 | XMS_ITS | Clinical Summary ---
Author Organization [facility] Address [facility] [place] [address] Care Team Providers Care Flooring Salesperson Name Role Phone Mishel Mendoza NP Primary Care Provider [phone] Allergies Active Allergy Reactions Criticality Noted Date [...] on file Legal Sex Female 2:58 AM NEON SIGN INSTALLER Gender Identity Not on file Sexual Orientation [...] 117.9 kg (260 lb) 06/07/2020 11:07 AM NEON SIGN INSTALLER Height 160 cm (5' 3 ) 06/07/2020 11:07 AM NEON SIGN INSTALLER Body Mass Index 46.06 06/07/2020 11:07 AM NEON SIGN INSTALLER Plan of Treatment Not on file Medical Devices Implanted Type Area Administrative Fellow Device Identifier Shelf Expiration Date Model / Serial / Lot Nevro Rodrigo [id number] Nevro 70cm Lead 5mm Spacing Kit Neurostimulator Sterile Latex Free - Sna - [id number] Implanted:Qty: 1 on 08/28/2018 by Germán Perez DO at [facility] N/A: Back Nevro Rodrigo [id number] 03/17/2021 [id number] / NA / [id number] Nevro Rodrigo [id number] Nevro 70cm Lead 5mm Spacing Kit Neurostimulator Sterile Latex Free - Sna - [id number] Implanted:Qty: 1 on 08/28/2018 by Germán Perez DO at [facility] N/A: Back Nevro Rodrigo [id number] 12/19/2020 [id number] [id number] / NA / [id number] Nevro Rodrigo [id number] Senza Ipg Kit Neurostimulator Sterile Disposable Latex Free - [id number] - [id number] Implanted:Qty: 1 on 08/28/2018 by Germán Perez DO at [facility] N/A: Back Nevro Rodrigo [id number] 03/31/2020 [id number] / [id number] / [id number] Insurance CHOICE PLUS IDPA IDPA MEDICARE Care Teams Flooring Salesperson Relationship Specialty Start Date End Date Mishel Mendoza NP [address] [place] [address] [place] [address] PCP - General Family Practice 06/07/20
--- OUTSIDE RECORDS SUMMARY | 2024-09-08 17:58 | XMS_ITS | Encounter Summary ---
Author Organization [facility] Address [address] [place] [address] Care Team Providers Care Civil Engineer'S Aide Name Role Phone Mishel Mendoza [facility] Primary Care Provider [phone] Encounter Details Date Type Department Care Team (Late st Contact Info) Description 11/06/2022 MyChart Message Enc [facility] [address] [place], [place] [address] [facility] Provider Air Quality Message Social History Tobacco [...] Sex Assigned at Female 05/13/2018 9:36 AM LOG SORTING SUPERVISOR Legal Sex Female 10:09 PM CDT Gender Identity Female 05/13/2018 9:36 AM LOG SORTING SUPERVISOR Sexual Orientation Straight 06/17/2021 9: 24 PM LOG SORTING SUPERVISOR Occupation Industry Job Start Date Job End Date leave of abscence back pain Not on file Not on file Not on file documented as of this encounter Plan of Treatment Upcoming Encounters Date Type Department Care Team (Late st Contact Info) Description 02/21/2025 2:30 PM CDT Office Visit [facility] [place] [id number] Daniela Coreas, ANP-BC [address] [facility] [address] [place] [address] documented as of this encounter Visit Diagnoses Not on filedocumented in this encounter Additional Health Concerns Infection Onset Date Last Indicated Resolved Time COVID-19 Rule Out 02/11/2023 02/11/2023 02/11/2023 1:13 PM CDT Assessment Noted Time PHQ-9 Depression Total Score: 2 08/16/19 23 12:00 PM CDT documented as of this encounter Care Teams Civil Engineer'S Aide Relationship Specialty Start Date End Date Mishel Mendoza FNP [address] [facility] [place] [address] PCP - General NURSE PRACTITIONER 05/07/18 documented as of this encounter
--- OUTSIDE RECORDS SUMMARY | 2024-09-08 17:58 | XMS_ITS | Referral Summary ---
Author Organization [facility] Address Counts include 234 beds at the [facility] [place] [address] Care Team Providers Care Consumer Educator Name Role Phone Mishel Mendoza NP Primary Care Provider [phone] Allergies Active Allergy Reactions Criticality Noted Date [...] on file Legal Sex Female 2:58 AM BIT SHARPENER OPERATOR Gender Identity Not on file Sexual Orientation [...] 117.9 kg (260 lb) 06/07/2020 11:07 AM BIT SHARPENER OPERATOR Height 160 cm (5' 3 ) 06/07/2020 11:07 AM BIT SHARPENER OPERATOR Body Mass Index 46.06 06/07/2020 11:07 AM BIT SHARPENER OPERATOR Plan of Treatment Not on file Medical Devices Implanted Type Area Welding Equipment Repairer Device Identifier Shelf Expiration Date Model / Serial / Lot Nevro Rodrigo [id number] Nevro 70cm Lead 5mm Spacing Kit Neurostimulator Sterile Latex Free - Sna - [id number] Implanted:Qty: 1 on 08/28/2018 by Germán Perez DO at [facility] N/A: Back Nevro Rodrigo [id number] 03/17/2021 [id number] [id number] / NA / [id number] Nevro Rodrigo [id number] Nevro 70cm Lead 5mm Spacing Kit Neurostimulator Sterile Latex Free - Sna - [id number] Implanted:Qty: 1 on 08/28/2018 by Germán Perez DO at [facility] N/A: Back Nevro Rodrigo [id number] 12/19/2020 [id number] 70B / NA / [id number] Nevro Rodrigo [id number] Senza Ipg Kit Neurostimulator Sterile Disposable Latex Free - [id number] - [id number] Implanted:Qty: 1 on 08/28/2018 by Germán Perez DO at [facility] N/A: Back Nevro Rodrigo [id number] 03/31/2020 [id number] / [id number] / [id number] Insurance CHOICE PLUS IDPA IDPA MEDICARE Care Teams Consumer Educator Relationship Specialty Start Date End Date Mishel Mendoza NP [address] [place] [address] [place] [address] PCP - General Family Practice 06/07/20
--- OUTSIDE RECORDS SUMMARY | 2024-09-08 17:58 | XMS_ITS | Clinical Summary ---
Author Organization [facility] Address [address] [place] [id number] Care Team Providers Care Internet Application Developer Name Role Phone Lisamargarette Mishel A [facility] Primary Care Provider [phone] Allergies Active Allergy Reactions Criticality Noted Date [...] apnea) 06/09/2023 Chronic diastolic congestive heart failure ([facility]) 06/09/2023 Prediabetes 09/10/2022 Mixed hyperlipidemia 05/14/2022 Assessment & Plan (05/14/2022 5:40 PM SENIOR SHAREPOINT ARCHITECT): Patient's calculated LDL cholesterol in July 2021 [...] 08/13/2012 Assessment & Plan (05/15/2022 11:17 AM SENIOR SHAREPOINT ARCHITECT): Upon review of the patient's blood pressures, [...] 06/28/2024 Assessment & Plan (05/15/2022 11:17 AM SENIOR SHAREPOINT ARCHITECT): The patient was advised to quit smoking [...] - 09/03/2024 11:59 PM CDT Hospital Encounter [facility] [address] [place] [address] Thouvenot, Kyle, DPM Discharge Disposition: Home or Self Care (Routine Discharge) 09/03/2024 1:41 PM CDT [facility] [address] [place] [address] Kyle Toney DPM Discharge Disposition: Home or Self Care (Routine Discharge) 09/03/2024 Travel 07/29/2024 Telephone [facility] [address] [facility] [place] [address] Mishel Mendoza FNP Medication 07/16/2024 Telephone [facility] [address] [place] [address] Atilio Cordon MD Results; Returned Call 07/16/2024 Patient Outreach [address] [place] [address] Mark Mulligan, field artillery fire control man Medication (Atorvastatin medication adherence review for 2023) 07/07/2024 9:07 AM SENIOR SHAREPOINT ARCHITECT - 07/07/2024 11:59 PM SENIOR SHAREPOINT ARCHITECT Hospital Encounter [facility] [address] [place] [address] Mishel Mendoza FNP Yang, John H, MD Discharge Disposition: Home or Self Care (Routine Discharge) 07/07/2024 9:05 AM SENIOR SHAREPOINT ARCHITECT - 07/07/2024 9:06 AM SENIOR SHAREPOINT ARCHITECT Hospital Encounter [facility] [address] [place] [address] Mishel Mendoza FNP Discharge Disposition: Home or Self Care (Routine Discharge) 07/07/2024 9:00 AM SENIOR SHAREPOINT ARCHITECT - 07/07/2024 9:04 AM SENIOR SHAREPOINT ARCHITECT Hospital Encounter [facility] [address] [place] [address] Mishel Mendoza FNP Discharge Disposition: Home or Self Care (Routine Discharge) 07/06/2024 3:00 PM SENIOR SHAREPOINT ARCHITECT - 07/06/2024 11:59 PM SENIOR SHAREPOINT ARCHITECT Hospital Encounter [facility] [place] [address] Iona Peralta NP Discharge Disposition: Home or Self Care (Routine Discharge) 07/06/2024 Travel 06/28/2024 10:00 AM SENIOR SHAREPOINT ARCHITECT Office Visit [facility] [address] [facility] [place] [address] Mishel Mendoza FNP Follow Up (6 month ) 06/28/2024 Travel 06/24/2024 Patient Outreach [facility] [address] [facility] [place] [address] Mishel Mendoza FNP Pre-visit Gap Closure 06/21/2024 11:00 AM SENIOR SHAREPOINT ARCHITECT Office Visit [facility] [place] [address] Atilio Cordon MD Follow Up (Chronic CHF) [...] Sex Assigned at Female 05/13/2018 9:36 AM SENIOR SHAREPOINT ARCHITECT Legal Sex Female 10:09 PM CDT Gender Identity Female 05/13/2018 9:36 AM SENIOR SHAREPOINT ARCHITECT Sexual Orientation Straight 06/17/2021 9: 24 PM SENIOR SHAREPOINT ARCHITECT Occupation Industry Job Start Date Job End Date leave of abscence back pain Not on file Not on file Not on file Last Filed Vital Signs Vital Sign Reading Time Taken Comments Blood Pressure 108/67 06/28/2024 9:58 AM SENIOR SHAREPOINT ARCHITECT Pulse 68 06/28/2024 9:58 AM SENIOR SHAREPOINT ARCHITECT Temperature 36.3 C (97.3 F) 06/28/2024 9:58 AM SENIOR SHAREPOINT ARCHITECT Respiratory Rate 12 06/28/2024 9:58 AM SENIOR SHAREPOINT ARCHITECT Oxygen Saturation 98% 06/28/2024 9:58 AM SENIOR SHAREPOINT ARCHITECT Inhaled Oxygen Concentration - - Weight 124.7 kg (275 lb) 06/28/2024 9:58 AM SENIOR SHAREPOINT ARCHITECT Height 161.3 cm (5' 3.5 ) 06/28/2024 9:58 AM SENIOR SHAREPOINT ARCHITECT Body Mass Index 47.95 06/28/2024 9:58 AM SENIOR SHAREPOINT ARCHITECT Plan of Treatment Upcoming Encounters Date Type Department Care Team (Late st Contact Info) Description 02/21/2025 2:30 PM CDT Office Visit [facility] [place] [phone] Daniela Coreas, ANP-BC [address] [phone] Health Maintenance Due Date Last Done Comments [...] 09/19/2017 Hepatitis C Completed 09/09/2022 PHQ-2 (Physician [place]) Completed 06/28/2024 Meningococcal B Vaccine Aged Out No l onger eligible based on patient's age to complete this topic Meningococcal Vaccine Aged Out No aracelis ishan eligible based on patient's age to complete this topic RSV Immunizations Under 20 Months Aged Out No longer eligible based on patient's age to complete this topic Medical Devices Implanted Type Area Landscape Specialist Device Identifier Shelf Expiration Date Model / Serial / Lot Stimulator Lead-08/28/2018 Implanted:Qty: 1 on 08/28/2018 by Germán Ferrara, DO Lead Implant Spine Thoracic [id number] NEVRO 1058-70B / [id number] / Description:PERCUTANEOUS SKYLER D Stimulator Lead-08/28/2018 Implanted:Qty: 1 on 08/28/2018 by Germán Ferrara, Lead Implant Spine Thoracic [id number] NEVRO 1058-70B / [id number] / Description:PERCUTANEOUS SKYLER D Spinal Cord Stimulator-2018 Implanted:Qty: 1 on 08/28/2018 by Germán Ferrara, DO Abdomen [id number] NEVRO 1500 / [id number] / Description:MR MITCHELL Cook CRISTINA THE MOST [...] CHEST WO CON Routine 07/07/2024 9:46 AM SENIOR SHAREPOINT ARCHITECT Lung nodule MG SCREENING W FAB ANDRIY DIGI Routine 07/07/2024 9:30 AM SENIOR SHAREPOINT ARCHITECT Encounter for screening mammogram for malignant neoplasm of breast PRO-BRAIN NATRIURETIC PEPTIDE Routine 07/07/2024 9:08 AM SENIOR SHAREPOINT ARCHITECT Chronic diastolic congestive heart failure (CMS/HCC HHS/HCC) ALBUMIN URINE RANDOM W/CREATININE Routine 07/07/2024 9:08 AM SENIOR SHAREPOINT ARCHITECT Stage 2 chronic kidney disease HEMOGLOBIN, GLYCOSYLATED Routine 07/07/2024 9:08 AM SENIOR SHAREPOINT ARCHITECT Prediabetes LIPID PANEL Routine 07/07/2024 9:08 AM SENIOR SHAREPOINT ARCHITECT Elevated lipoprotein(a) BASIC METABOLIC PANEL Routine 07/07/2024 9:08 AM SENIOR SHAREPOINT ARCHITECT Primary hypertension MRI LUMB SPINE WO CON Routine 07/06/2024 3:51 PM SENIOR SHAREPOINT ARCHITECT Lumbago Vertebrogenic low back pain HEPATITIS C [...] 4:18 PM Narrative 09/07/2024 4:24 PM CDT [address] [place] [address] PATIENT NAME: CHRIS Calderon BONE EXAM: MRI [...] Note Luis Enrique Hernández MD - 09/07/2024 [address] [place] [address] PATIENT NAME: CHRIS Calderon BONE EXAM: MRI [...] 2:01 PM Narrative 09/03/2024 2:02 PM CDT [address] [address] Examination: XR ABD AP+LAT Exam time: 09/03/2024 [...] Note Luis Enrique Hernández MD - 09/03/2024 [id number] [place] [address] Examination: XR ABD AP+LAT Exam time: 09/03/2024 [...] CT CHEST WO CON (07/07/2024 9:46 AM SENIOR SHAREPOINT ARCHITECT) Anatomical Region Laterality Modality Chest Computed Tomogra phy 07/11/2024 2:06 AM SENIOR SHAREPOINT ARCHITECT Impressions 07/11/2024 2:08 AM SENIOR SHAREPOINT ARCHITECT IMPRESSION: 1. No pathologic pulmonary nodules or pathologic lymphadenopathy. 2. Stable calcified granulomas and calcified right hilar lymph nodes.. 3. No infiltrate or effusion. Referred By: MISHEL MENDOZA Interpreted By: Jose Dela Cruz MD, 07/11/2024 2:06 AM Narrative 07/11/2024 2:08 AM SENIOR SHAREPOINT ARCHITECT [address] [place] [id number] EXAMINATION: CT CHEST WITHOUT CONTRAST EXAM DATE/TIME: [...] Note Jose Dela Cruz MD - 07/11/[address] [place] [address] EXAMINATION: CT CHEST WITHOUT CONTRAST EXAM DATE/TIME: [...] MD, 07/11/2024 2:06 AM us Mishel Mendoza CANOE INSPECTOR FINAL CT Final Res ult * MG SCREENING W FAB ANDRIY DIGI (07/07/2024 9:30 AM SENIOR SHAREPOINT ARCHITECT) Anatomical Region Laterality Modality Breast Bilateral Mammography 07/08/2024 6:43 AM SENIOR SHAREPOINT ARCHITECT Impressions 07/08/2024 6:44 AM SENIOR SHAREPOINT ARCHITECT ===== IMPRESSION: ===== 1. Stable mammographic appearance with no new findings to suggest malignancy in either breast. Assessment: ACR BI-RADS 2 - BENIGN FINDING(S) Recommendation: 1:Routine Screening Bilateral Comments: Ordered By: MISHEL MENDOZA Interpreted By: Rony White MD, 07/08/2024 6:43 AM Narrative 07/08/2024 6:44 AM SENIOR SHAREPOINT ARCHITECT [address] [place] [address] Examination: Digital bilateral screening mammogram with 3D [...] either breast to suggest malignancy. Mishel Mendoza CANOE INSPECTOR FINAL MAMMO Final Res ult * PRO BNP ([facility]) (07/07/2024 9:08 AM SENIOR SHAREPOINT ARCHITECT) PRO-BRAIN NATRIURETIC PEPTIDE 77 0 - 125 PG/ML 07/07/2024 9:45 AM SENIOR SHAREPOINT ARCHITECT [facility] Comment: CUT POINTS ESTABLISHED BY [...] 72% FOR ACUTE CHF. 07/07/2024 9:08 AM SENIOR SHAREPOINT ARCHITECT Atilio Cordon MD LABORATORY Final Result [facility] [address] [place] [address], * (ABNORMAL) HEMOGLOBIN, GLYCOSYLATED (07/07/2024 9:08 AM SENIOR SHAREPOINT ARCHITECT) HGB A1C 6.1(H) <5.7 % 07/07/2024 5:44 PM SENIOR SHAREPOINT ARCHITECT [facility] Comment: ADA GUIDELINES 2010 5.7 TO 6.4% INCREASED RISK OF DIABETES > OR = 6.5% CONSISTENT WITH DIABETES ESTIMATED AVG GLUCOSE 128 mg/dL 07/07/2024 5:44 PM SENIOR SHAREPOINT ARCHITECT [facility] 07/07/2024 9:08 AM SENIOR SHAREPOINT ARCHITECT Mishel RIVERA LABORATORY Final Res ult [facility] [address] [place] [address], [place] [phone] * (ABNORMAL) ALBUMIN URINE RANDOM W/CREATININE (07/07/2024 9:08 AM SENIOR SHAREPOINT ARCHITECT) CREATININE RANDOM (U) 223.0(H) 28 - 217 MG/DL 07/07/2024 3:40 PM [facility] MICROALBUMIN (U) 1.1 <2.0 mg/dL 07/07/2024 3:40 PM [facility] ALBUMIN/CREAT RATIO 5.0 <30 MG/G 07/07/2024 3:40 PM [facility] URINE SPECIMEN / Unknown 07/07/2024 9:08 AM SENIOR SHAREPOINT ARCHITECT Mishel Mendoza CANOE INSPECTOR FINAL URINE ORDERABLES Final Re sult [facility] [address] [place] [address], * (ABNORMAL) BASIC METABOLIC PANEL (07/07/2024 9:08 AM SENIOR SHAREPOINT ARCHITECT) GLUCOSE 98 70 - 99 MG/DL 07/07/2024 9:32 AM [facility] BUN 15 7 - 18 MG/DL 07/07/2024 9:32 AM [facility] CREATININE S/P/B 1.03 0.50 - 1.20 MG/DL 07/07/2024 9:32 AM [facility] SODIUM S/P/B 140 136 - 145 MMOL/L 07/07/2024 9:32 AM [facility] POTASSIUM S/P/B 3.7 3.5 - 5.1 MMOL/L 07/07/2024 9:32 AM [facility] CHLORIDE S/P/B 105 100 - 108 MMOL/L 07/07/2024 9:32 AM [facility] CO2 26.7 21.0 - 32.0 MMOL/L 07/07/2024 9:32 AM [facility] CALCIUM S/P/B 8.4(L) 8.5 - 10.1 MG/DL 07/07/2024 9:32 AM [facility] ANION GAP 8.3 5.0 - 15.0 MMOL/L 07/07/2024 9:32 AM [facility] BUN CREATININE RATIO 14.6 6 - 07/07/2024 9:32 AM [facility] GFR ESTIMATE 67(L) >90 ML/MIN/1.7 3 M2 07/07/2024 9:32 AM [facility] Comment: NOTE: eGFR is not calculated for patients <18 years of age. This is an estimated GFR calculation using the new CKD EPI creatinine equation without race and so does not require a correction factor for race. This estimated GFR should not be used for calculating drug doses. 07/07/2024 9:08 AM SENIOR SHAREPOINT ARCHITECT us Mishel Mendoza [facility] LABORATORY Final Res ult [facility] [address] [place] [address] [place] [address], * (ABNORMAL) LIPID PANEL (07/07/2024 9:08 AM SENIOR SHAREPOINT ARCHITECT) CHOLESTEROL 164 <200 MG/DL 07/07/2024 3:22 PM [facility] TRIGLYCERIDES 150(H) <150 MG/DL 07/07/2024 3:22 PM [facility] HDL 48 >40.0 MG/DL 07/07/2024 3:22 PM [facility] LDL (CALCULATED) 86 <100 MG/DL 07/07/2024 3:22 PM [facility] NON HDL CHOLESTEROL 116 <130 MG/DL 07/07/2024 3:22 PM [facility] CHOL/HDL RATIO 3.4 0.0 - 4.5 07/07/2024 3:22 PM [facility] VLDL CALCULATION 30 5 - 55 MG/DL 07/07/2024 3:22 PM [facility] LIPID INTERPRETATION 07/07/2024 3:22 PM SENIOR SHAREPOINT ARCHITECT [facility] Comment: NIH CONCENSUS REPORT RECOMMENDATIONS: ADULT CHILD LOW RISK: CHOLESTEROL <200 <170 TRIGLYCERIDE <150 --- HDL >=60 --- LDL <100 <110 BORDERLINE: CHOLESTEROL 200-239 170-199 TRIGLYCERIDE 150-199 --- HDL 40-59 --- LDL 100-159 110-129 HIGH RISK: CHOLESTEROL >=240 >=200 TRIGLYCERIDE >=200 --- HDL <40 --- LDL >=160 >=130 07/07/2024 9:08 AM SENIOR SHAREPOINT ARCHITECT Mishel Mendoza [facility] LABORATORY Final Res ult [facility] [address] [place] [address], * MRI LUMB SPINE WO CON (07/06/2024 3:51 PM SENIOR SHAREPOINT ARCHITECT) Anatomical Region Laterality Modality Spine Magnetic Resonan ce 07/07/2024 2:12 AM SENIOR SHAREPOINT ARCHITECT Impressions 07/07/2024 2:15 AM SENIOR SHAREPOINT ARCHITECT IMPRESSION: 1. Mild multilevel degenerative changes in the lumbar spine, as detailed above. 2. Partially visualized spinal stimulator. Referred By: IONA PERALTA Interpreted By: Joey Redding MD, 07/07/2024 2:12 AM Narrative 07/07/2024 2:15 AM SENIOR SHAREPOINT ARCHITECT [facility] [address] [place], [place] [address] INDICATION: Back pain. Spinal stimulator. EXAMINATION: MRI [...] Procedure Note Joey Redding MD - 07/07/[address] [address] INDICATION: Back pain. Spinal stimulator. EXAMINATION: MRI [...] MD, 07/07/2024 2:12 AM us Iona Peralta [employer] MRI Final Result * HEPATITIS C ANTIBODY (09/09/2022 2:30 PM CDT) HEPATITIS C AB NON-REACTI VE NON-REACTI VE 09/09/2022 8:07 PM CDT [facility] 09/09/2022 2:30 PM CDT us Mishel Mendoza CANOE INSPECTOR FINAL LABORATORY Final Res ult [facility] [address] [place] [address], [place] [phone] * COLONOSCOPY/EGD (09/19/2017 12:00 AM CDT) 09/19/2017 us Documents Scanned SCANNING Final [facility] [place] [facility] Last 3 Months or Most Recently Relevant to Health Maintenance Insurance MEDICAID [facility] - COMMERCIAL MEDICAID Advance Directives Documents on File Type Date Recorded 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
== END 2024-09-08 17:56 | disposition left against medical advice (07) ==
DX: M79.604 Pain in right leg (principal)
CPT/HCPCS: 99199